=== PATIENT | male | born 1965 ===

== ENCOUNTER 2021-04-14 22:09 | Emergency (ER) | payer OTHER ==
--- OUTSIDE RECORDS SUMMARY | 2021-04-14 22:12 | XMS REPORT | Continuity of Care Document ---
:1965 Author Organization [facility] Address [facility] Lisanrdo Flaherty [address] [place] [id number] Care Team Providers Name Role Phone Provider, [facility] Attending Clinician Unavailable Spike DEPUTY CLERK OF SUPERIOR COURT Attending Clinician SPIKE Attending Clinician Unavailable Ashli MEJIAS, A Attending Clinician Unavailable Lab, Fam Poreagan I Attending Clinician Unavailable Rehan BA, A Attending Clinician Harpal VAN Attending Clinician Unavailable Mary DEPUTY CLERK OF SUPERIOR COURT Attending Clinician MARY Attending Clinician Unavailable Payers Payer Name Policy Type Policy Number Effective Date Expiration Date S ource Problems Condition Condition Condition Status Onset Resolution Last Treating Co mments Source Name Details Category Date Date Treatment Clinician Date No known No known Disease Unive rs active active ity of problems problems [facility] Allergies, Adverse Reactions, Alerts Allergy Allergy Status Severity Reaction(s) Onset Inactive Treating Comm ents Source Name Type Date Date Clinician Aspirin Propensi Active Unknown - Univ ers ty to See comments 09-01 ity of adverse 00:00: [place] reaction 00 [facility] ASPIRIN DRUG Active Unknown-Cmnt Uni vers INGREDI 09-01 ity of 00:00: [place] 00 [facility] NO KNOWN Drug Active Univers ALLERGIE Class ity of S [facility] Social History Social Habit Start Date Stop Date Quantity Comments Source Exposure to Not sure [facility] SARS-CoV-2 (event) Medica [facility] Tobacco use and 2020-09-01 2020-09-01 [facility]00:00 [facility] Sex Ass[birth year] At [birth year] [facility] 00:[facility] 00[facility]:00 [facility] [place] Smoking Status Start Date Stop Date Source Unknown if ever smoked [facility] Never smoker [facility] Medications Ordered Filled Start Stop Current Ordering Indication Dosage Frequency Signature Comments Components Source Medication Medication Date Date Medication? Clinician (SIG) Name Name No known No Univers medications ity of [facility] Immunizations Ordered Filled Immunization Date Status Comments Sour e Immunization Name Name SARS-COV-2 COVID-19 2020-08-13 Completed Unive rsity of PFIZER VACCINE 00:00:00 [facility] SARS-COV-2 COVID-19 2020-08-13 Completed Unive rsity of PFIZER VACCINE 00:00:00 [facility] SARS-COV-2 COVID-19 2020-08-13 Completed Unive rsity of PFIZER VACCINE 00:00:00 [facility] SARS-COV-2 COVID-19 2020-08-13 Completed Unive rsity of PFIZER VACCINE 00:00:00 [facility] SARS-COV-2 COVID-19 2020-08-13 Completed Unive rsity of PFIZER VACCINE 00:00:00 [facility] SARS-COV-2 COVID-19 2020-07-23 Completed Unive rsity of PFIZER VACCINE 00:00:00 [facility] SARS-COV-2 COVID-19 2020-07-23 Completed Unive rsity of PFIZER VACCINE 00:00:00 [facility] SARS-COV-2 COVID-19 2020-07-23 Completed Unive rsity of PFIZER VACCINE 00:00:00 [facility] SARS-COV-2 COVID-19 2020-07-23 Completed Unive rsity of PFIZER VACCINE 00:00:00 [facility] SARS-COV-2 COVID-19 2020-07-23 Completed Unive rsity of PFIZER VACCINE 00:00:00 [facility] Vital Signs Vital Name Observation Time Observation Value Comments Source Systolic blood 2020-09-01 14:21:00 148 mm[Hg] Univer sity of pressure [facility] Diastolic blood 2020-09-01 14:21:00 94 mm[Hg] Unive rsity of pressure [facility] Heart rate 2020-09-01 14:18:00 86 /min [facility] Body temperature 2020-09-01 14:18:00 36.56 [place] [facility] ersity of [facility] Respiratory rate 2020-09-01 14:18:00 18 /min [facility] Body height 2020-09-01 14:18:00 177.8 cm [facility] Body weight 2020-09-01 14:18:00 100.699 kg [facility] BMI 2020-09-01 14:18:00 31.85 kg/m2 [facility] Oxygen saturation in 2020-09-01 14:18:00 97 /min University Arterial blood by [facility] Pulse oximetry Branch Procedures This patient has no known procedures. Encounters Start End Encounter Admission Attending Care Care Encounter Source Date/Time Date/Time Type Type Clinicians Facility Department ID 2020-09-01 2020-09-01 Urgent Provider, [facility] 1..[id number] Univers 09:14:51 09:34:51 Care Spike Cittadino [id number] ity of [place] [id number] Radu as Professio [phone] [address] Office [address] 2020-09-01 2020-09-01 Out[facility] [id number] Univers 09:00:00 09:00:00 [id number] ity [facility] 2020-09-01 2020-09-01 [facility] [id number] Univers 09:00:00 09:00:00 LAYLA ity [facility] 2020-09-01 2020-09-01 Ayesha Cornelius [facility] 1..840.114 [id number] Univers 00:00:00 00:00:00 (Out) Briseida [facility] [id number] [facility]y of [place] [id number] Radu as Professio [phone] [address] Office [address] 2020-08-31 2020-08-31 Laboratory Lab, Adc Fam Pob I [facility] 1.2. 840.114 [id number] Univers 13:53:11 14:13:11 Only Spike Layla [employer] [id number] ity of [place] [id number] Radu as Professio [phone] [facility] nal [address] [place] [address] Office [address] 2020-08-31 2020-08-31 Outpatient [facility] [id number] Univers 14:00:00 14:00:00 [id number] ity [facility] 2020-08-31 2020-08-31 Outpatient [facility] [id number] Univers 14:00:00 14:00:00 ity [facility] 2020-08-31 2020-08-31 Outpatient [facility] [id number] Univers 14:00:00 14:00:00 ity [facility] 2020-08-29 2020-08-29 Laboratory Lab, [facility] Fam Pob I [facility] 1.2. 840.114 [id number] Univers 13:43:28 14:03:28 Only Rehan Trisha [facility] [id number] ity of [place] [id number] Radu as Professio [phone] Nd dical nal [address] [place] [address] 2020-08-29 2020-08-29 Outpatient [facility] [id number] Univers 14:00:00 14:00:00 [id number] ity [facility] 2020-08-29 2020-08-29 Outpatient R REHAN[facility] [id number] Univers 14:00:00 14:00:00 [facility] 2020-08-28 2020-08-28 Laboratory Lab, [facility] Fam Pob I [facility] 1.2. 840.114 [id number] Univers 14:06:03 14:26:03 Only Elma [facility] [id number] ity of [place] [id number] Radu as Professio [phone] Nd dical nal [address] [place] [address] 2020-08-28 2020-08-28 Outpatient R M[facility] [id number] Univers 14:20:00 14:20:00 ELMA [facility] [place] Results This patient has no known results.
[2021-04-14 23:00] LABS: Urine Blood 3+ (Negative); Urine Glucose 2+ (Negative); Urine Protein 2+ (Negative); Urine Specific Gravity 1.025 (1.005-1.030)
[2021-04-14 23:37] LABS: Urine Bacteria <20 /HPF (NONE SEEN); Urine RBC >50 /HPF (NONE SEEN)
[2021-04-15 01:02] LABS: Absolute Lymphocytes (CBC) 2.6 K/uL (0.7-4.9); Basophils % 0.7 % (0-1.3); Hematocrit 45.6 % (39.6-49.0); Lymphocytes % 27.5 % (15.3-44.8); MPV 8.9 fL (7.6-11.3); RBC Red Blood Cell Count 5.11 M/uL (4.33-5.43)
[2021-04-15 01:18] LABS: Potassium 3.8 mmol/L (3.5-5.1)
--- NOTE | 2021-04-15 03:01 | EDPHYS ---
Physician Documentation [facility] Name: Rico Duggan Age: 56 yrs Sex: Male : 1965 Arrival Date: 04/14/2021 Time: 22:13 Bed 15 Private MD: ED Physician Jordon Cantor HPI: 04/15 00:52 This 56 yrs old Male presents to ER via Ambulatory with complaints of Pain With jr8 Urination - Blood. 00:54 Associated signs and symptoms: The patient has no apparent associated signs or jr8 symptoms. Severity of symptoms: At their worst the symptoms were mild, in the emergency department the symptoms have improved. The patient has not experienced similar symptoms in the past. The patient has been recently seen by a physician:. This is a 56-year-old male patient that presented to the emergency room with a 3-day history of hematuria. Patient was recently seen in urgent care and started on Keflex for possible urinary tract infection. Came today for continuation of hematuria with mild lower abdominal discomfort. Denies any other symptoms at this time.. Historical: - Allergies: 04/14 22:27 No Known Allergies; da3 - PMHx: 22:27 Diabetes mellitus; Hypertensive disorder; Sleep apnea; da3 - Immunization history:: Client reports receiving the 2nd dose of the Covid vaccine. - Social history:: Smoking status: Patient denies any tobacco usage or history of. ROS: 04/15 00:54 Eyes: Negative for injury, pain, redness, and discharge, ENT: Negative for injury, jr8 pain, and discharge, Neck: Negative for injury, pain, and swelling, Cardiovascular: Negative for chest pain, palpitations, and edema, Respiratory: Negative for shortness of breath, cough, wheezing, and pleuritic chest pain, Back: Negative for injury and pain, MS/Extremity: Negative for injury and deformity, Skin: Negative for injury, rash, and discoloration, Neuro: Negative for headache, weakness, numbness, tingling, and seizure. Abdomen/GI: Positive for abdominal pain, Negative for nausea, vomiting, and diarrhea. : Positive for hematuria. Exam: 00:54 Cardiovascular: Regular rate and rhythm with a normal S1 and S2. No gallops, murmurs, jr8 or rubs. Normal PMI, no JVD. No pulse deficits. Respiratory: Lungs have equal breath sounds bilaterally, clear to auscultation and percussion. No rales, rhonchi or wheezes noted. No increased work of breathing, no retractions or nasal flaring. Back: No spinal tenderness. No costovertebral tenderness. Full range of motion. Skin: Warm, dry with normal turgor. Normal color with no rashes, no lesions, and no evidence of cellulitis. MS/ Extremity: Pulses equal, no cyanosis. Neurovascular intact. Full, normal range of motion. Neuro: Awake and alert, GCS 15, oriented to person, place, time, and situation. Cranial nerves II-XII grossly intact. Motor strength 5/5 in all extremities. Sensory grossly intact. 00:54 Abdomen/GI: Inspection: abdomen appears normal, Bowel sounds: active, all quadrants, Palpation: soft, in all quadrants, mild abdominal tenderness, in the suprapubic area, mass, is not appreciated, rebound tenderness, is not appreciated, voluntary guarding, is not appreciated, involuntary guarding, is not appreciated, no appreciated organomegaly, Indicators: McBurney's point is not tender, Hathaway's sign is negative, Liver: tenderness, is not appreciated. Vital Signs: 04/14 22:23 BP 157 / 101; Pulse 88; Resp 20; Temp 97.9; Pulse Ox 97% on R/A; Weight 104.33 kg; da3 Height 5 ft. 10 in. (177.80 cm); 04/15 02:03 BP 162 / 95; Pulse 75; Resp 16; Temp 97.9; Pulse Ox 93% 0 lpm ; sv1 04:18 BP 132 / 82; Pulse 76; Resp 20; Pulse Ox 97% 0 lpm ; sv1 04/14 22:23 Body Mass Index 33.00 (104.33 kg, 177.80 cm) da3 MDM: 04/14 23:56 Patient medically screened. jr8 04/15 02:59 Data reviewed: vital signs, nurses notes, lab test result(s), radiologic studies, CT jr8 scan. Data interpreted: Pulse oximetry: on room air is 95 %. Interpretation: normal. Counseling: I had a detailed discussion with the patient and/or guardian regarding: the historical points, exam findings, and any diagnostic results supporting the discharge/admit diagnosis, lab results, radiology results, the need for outpatient follow up, a family practitioner, to return to the emergency department if symptoms worsen or persist or if there are any questions or concerns that arise at home. ED course: Discussed with patient there is no acute findings other than acute cystitis on CT. Labs unremarkable otherwise. Needs to continue his antibiotics and will culture urine in the meantime if he were to get worse come back for further evaluation. Patient good with this at this time will follow up in her come back.. 04/14 22:59 Order name: Urine Dipstick-Ancillary; Complete Time: 23:59 EDDE 04/14 23:00 Order name: Urine Microscopic Only; Complete Time: 23:59 [facility] 04/14 23:00 Order name: Urine Culture [facility] 04/14 23:59 Order name: CBC with Diff; Complete Time: 01:16 [email or web address] 04/14 23:59 Order name: Basic Metabolic Panel; Complete Time: 01:20 [email or web address] 04/15 00:38 Order name: CT Abd/Pelvis - IV Contrast Only [email or web address] 04/14 23:00 Order name: Urine Dipstick-Ancillary (obtain specimen); Complete Time: 23:01 [facility] 04/14 23:59 Order name: IV; Complete Time: 00:33 [email or web address] Administered Medications: 03:10 Drug: Rocephin (cefTRIAXone) 1 grams Route: IV; Rate: calculated rate; Site: right sv1 antecubital; 04:16 Follow up: Response: No adverse reaction sv1 03:17 Drug: Zofran (Ondansetron) 4 mg Route: IVP; Site: right antecubital; as6 04:16 Follow up: Response: Nausea is decreased sv1 04:20 Follow up: Response: No adverse reaction sv1 Disposition: 13:02 Co-signature as Attending Physician, Jordon Cantor MD I agree with the assessment and carlos plan of care. Disposition Summary: 04/15/21 03:00 Discharge Ordered Location: Home jr Problem: new jr8 Symptoms: have improved jr8 Condition: Stable jr8 Diagnosis - Acute cystitis with hematuria jr8 Followup: jr8 - With: Private Physician - When: 2 - 3 days - Reason: Recheck today's complaints, Continuance of care, Re-evaluation by your physician Discharge Instructions: - Discharge Summary Sheet jr8 - Urinary Tract Infection, Adult jr8 Forms: - Medication Reconciliation Form jr8 - Thank You Letter jr8 - Antibiotic Education jr8 - Prescription Opioid Use jr8 - Work release form sv1 Signatures: Dispatcher [employer] EDJordon Richards MD MD cha Roszak, Josh, PA PA jr8 Casimiro Goodrich 2 Jake Cespedes, RN RN da3 Wilbert Lee RN RN as6 Azar Jovel RN RN sv1
--- NOTE | 2021-04-15 03:01 | ER ---
Nurse's Notes [facility] Name: Rico Duggan Age: 56 yrs Sex: Male : 1965 Arrival Date: 04/14/2021 Time: 22:13 Bed 15 Private MD: Diagnosis: Acute cystitis with hematuria Presentation: 04/14 22:23 Chief complaint: Patient states: patient states blood in urine with pain toward end of da3 flow starting wednesday. Coronavirus screen: Vaccine status: Patient reports receiving the 2nd dose of the covid vaccine. Ebola Screen: No symptoms or risks identified at this time. Initial Sepsis Screen: Does the patient meet any 2 criteria? No. Patient's initial sepsis screen is negative. Does the patient have a suspected source of infection? No. Patient's initial sepsis screen is negative. Risk Assessment: Do you want to hurt yourself or someone else? Patient reports no desire to harm self or others. Onset of symptoms was April 11, 2021 at 15:00. 22:23 Method Of Arrival: Ambulatory da3 22:23 Acuity: PANCHO 4 da3 Triage Assessment: 22:27 General: Appears in no apparent distress. comfortable, Behavior is calm, cooperative. da3 Pain: Pain currently is 8 out of 10 on a pain scale. Historical: - Allergies: 22:27 No Known Allergies; da3 - PMHx: 22:27 Diabetes mellitus; Hypertensive disorder; Sleep apnea; da3 - Immunization history:: Client reports receiving the 2nd dose of the Covid vaccine. - Social history:: Smoking status: Patient denies any tobacco usage or history of. Screenin/14 02:04 Abuse screen: none. Nutritional screening: No deficits noted. Tuberculosis screening: sv1 No symptoms or risk factors identified. Fall Risk None identified. Assessment: 02:05 Reassessment: CT abd completed. . sv1 Vital Signs: 04/14 22:23 BP 157 / 101; Pulse 88; Resp 20; Temp 97.9; Pulse Ox 97% on R/A; Weight 104.33 kg; da3 Height 5 ft. 10 in. (177.80 cm); 04/15 02:03 BP 162 / 95; Pulse 75; Resp 16; Temp 97.9; Pulse Ox 93% 0 lpm ; sv1 04:18 BP 132 / 82; Pulse 76; Resp 20; Pulse Ox 97% 0 lpm ; sv1 04/14 22:23 Body Mass Index 33.00 (104.33 kg, 177.80 cm) da3 ED Course: 04/14 22:13 Patient arrived in ED. 22:27 Triage completed. da3 22:27 Arm band placed on right wrist. da3 23:56 Chandra Luciano PA is PHCP. jr8 23:56 Jordon Cantor MD is Attending Physician. jr8 04/15 00:33 Inserted saline lock: 20 gauge in right antecubital area, using aseptic technique. ds4 Blood collected. 01:43 Azar Jovel, RN is Primary Nurse. sv1 02:04 Patient has correct armband on for positive identification. Bed in low position. Side sv1 rails up X 1. 02:04 No provider procedures requiring assistance completed. sv1 02:09 CT Abd/Pelvis - IV Contrast Only In Process Unspecified. EDMS 04:17 IV discontinued. sv1 Administered Medications: 03:10 Drug: Rocephin (cefTRIAXone) 1 grams Route: IV; Rate: calculated rate; Site: right sv1 antecubital; 04:16 Follow up: Response: No adverse reaction sv1 03:17 Drug: Zofran (Ondansetron) 4 mg Route: IVP; Site: right antecubital; as6 04:16 Follow up: Response: Nausea is decreased sv1 04:20 Follow up: Response: No adverse reaction sv1 Outcome: 03:00 Discharge ordered by . jr8 04:17 Discharged to home ambulatory. sv1 04:17 Condition: good sv1 04:17 Discharge instructions given to patient. sv1 04:21 Patient left the ED. sv1 Signatures: Dispatcher [employer] EDMS Chandra Luciano PA PA jr8 Kiko Bright ds4 Johanne Cool Jake Cespedes RN RN da3 Wilbert Lee RN RN as6 Azar Jovel, CHAYITO RN sv1
[2021-04-15] MEDS ORDERED: CEFTRIAXONE 1000 MG/VIAL ONE (03:04)
[2021-04-15] MEDS ORDERED: ONDANSETRON 4 MG/2 ML VIAL ONE (03:15)
[2021-04-15 04:28] VITALS: TEMP 97.9
[2021-04-15 04:31] VITALS: BP 132/82; O2SAT 97
--- NOTE | 2021-04-15 12:46 | RAD REPORT ---
EXAM DESCRIPTION: CT - Abdomen Pelvis W Contrast - 04/15/2021 4:37 am CLINICAL HISTORY: The patient is 56 years old and is Male; hematuria;Abd pain TECHNIQUE: Axial computed tomography images of the abdomen and pelvis with intravenous contrast. S agittal and coronal reformatted images were created and reviewed. This CT exam was performed using one or more of the following dose reduction techniques: automated exposure control, adjustment of t he mA and/or kV according to patient size, and/or use of iterative reconstruction technique. COMPARISON: No relevant prior studies available. FINDINGS: LUNG BASES: Unremarkable. No mass. No consolidation. ABDOMEN: LIVER: The liver is enlarged and diffusely fatty. GALLBLADDER AND BILE DUCTS: The gallbladder is contracted. PANCREAS: No ductal dilation. No mass. SPLEEN: Unremarkable. ADRENALS: Nodular hyperplasia of the adrenal glands is noted, left greater than right. KIDNEYS AND URETERS: Exophytic left renal cyst is present. The kidneys enhance symmetrically. Th ere is no hydronephrosis or hydroureter of either kidney. No obstructing renal or ureteral calculus i s seen. STOMACH AND BOWEL: Stomach is fluid and air. The small bowel is normal in caliber. Stool is pres ent throughout colon. There is no mucosal thickening or evidence of bowel obstruction. PELVIS: APPENDIX: No findings to suggest acute appendicitis. BLADDER: Extensive bladder wall thickening is present. The bladder is not well distended. REPRODUCTIVE: Calcifications are present within the prostate. ABDOMEN and PELVIS: INTRAPERITONEAL SPACE: Unremarkable. No free air. No significant fluid collection. BONES/JOINTS: Minimal degenerative change of the lower lumbar spine is present. SOFT TISSUES: A small fat-containing umbilical hernia is present. VASCULATURE: Unremarkable. No abdominal aortic aneurysm. LYMPH NODES: Unremarkable. No enlarged lymph nodes. IMPRESSION: Extensive bladder wall thickening out of proportion to the degree of distention suggesti ve of cystitis. Electronically signed by: Sara Martini MD 04/15/2021 2:38 AM TABLE ASSEMBLER Due to temporary technical issues with the PACS/Fluency reporting system, reports are being signed by the in house radiologist without review as a courtesy to ensure prompt reporting. The interpreting r adiologist is fully responsible for the content of the report.
== END 2021-04-15 04:21 | disposition home or self-care (01) ==
LOC: ER 22:09
DX: N30.01 Acute cystitis with hematuria (principal); I10 Essential (primary) hypertension
CPT/HCPCS: 87088; 85025; 87086; 80048; 36415; 74177; Q9967; J2405; 81003; 81015; 96374; 96375; 99284